=== PATIENT | female | born 1990 | race Caucasian/White ===

== ENCOUNTER → 2018-07-27 | Outpatient (CLI) | payer SELFPAY ==
--- NOTE | 2018-07-27 16:37 | KCIC ---
PA and lateral chest radiograph. History: Chronic shortness of breath and chest pain. Comparison: None. Findings: Cardiomediastinal silhouette is within normal limits for size. Bilateral lung teran appear clear without evidence of infiltrate, effusion, or pneumothorax. Impression: 1. No acute cardiopulmonary process. Electronically signed by: Kevin Ramirez MD (07/27/2018 4:34 PM) [id number]
== END | disposition home or self-care (01) ==
LOC: KCIC 15:38
DX: R06.02 Shortness of breath (principal); R07.89 Other chest pain
CPT/HCPCS: 71046